=== PATIENT | male | born 1985 | race African-American/Black ===

== ENCOUNTER 2021-07-31 07:44 | Outpatient (REF) | payer BC, SELFPAY ==
[2021-07-31 08:52] LABS: Alanine Aminotransferase 37 U/L (0-40); Albumin Level 4.4 g/dL (3.5-5.0); Alkaline Phosphatase 78 U/L (39-117); Anion Gap 10 (12-20); Aspartate Amino Transferase 24 U/L (5-37); Bilirubin Total 0.4 mg/dL (0.0-1.0); Blood Urea Nitrogen 11 mg/dL (9-16); Calcium 9.7 mg/dL (8.4-10.2); Carbon Dioxide 28 mmol/L (22-29); Chloride 105 mmol/L (96-108); Cholesterol 178 mg/dL; Estimated Glomerular Filt Rate > 60; Glucose Fasting 122 mg/dL (60-99); HDL Cholesterol 37 mg/dL; LDL Cholesterol Calculated 124 mg/dl; Potassium 4.4 mmol/L (3.3-5.1); Sodium 139 mmol/L (135-145); Total Protein 7.6 g/dL (6.5-8.0); Triglycerides 86 mg/dL
[2021-07-31 08:58] LABS: Estimated Average Glucose 126 mg/dL
[2021-07-31 09:13] LABS: HBS Num1 109.55 mIU/mL (0-7.99); HBc Num1 0.07 S/CO (0.00-0.79); HIV AB/AG Nonreactive (Nonreactive); HIV Num 1 0.08 S/CO (0.00-0.99); Hepatitis B Core Antibody Nonreactive (Nonreactive); ~HepC Num1 0.16 S/CO (0.00-0.79); ~Hepatitis B Surface Antibody REACTIVE (Nonreactive); ~Hepatitis C Antibody Nonreactive (Nonreactive)
[2021-07-31 09:16] LABS: HBsAGNum1 0.22 S/CO (0.00-0.99); Hepatitis B Surface Antigen Negative (Negative)
[2021-07-31 09:17] LABS: TSH reflex Free T4 1.53 uIU/mL (0.32-4.0)
[2021-07-31 09:31] LABS: Syphilis Screen Reactive (Nonreactive)
[2021-08-06 16:11] LABS: Chlamydia Pneumoniae IgA <1:16 titer (<1:16); Chlamydia Pneumoniae IgM <1:10 titer (<1:10); Chlamydia Psittaci IgA <1:16 titer (<1:16); Chlamydia Psittaci IgG <1:64 titer (<1:64); Chlamydia Psittaci IgM <1:10 titer (<1:10); Chlamydia Trachomatis IgA <1:16 titer (<1:16); Chlamydia Trachomatis IgG <1:64 titer (<1:64); Chlamydia Trachomatis IgM <1:10 titer (<1:10); T.Pallidum Particle Agg Test Reactive (Nonreactive)
[2021-08-28 10:04] LABS: RPR Quantitative Non-Reactive (Nonreactive)
== END 2021-07-31 07:45 | disposition home or self-care (01) ==
LOC: HO.LAB 07:44
PROVIDERS: PCP Physician Assistant; Visit Provider Physician Assistant
DX: Z13.29 Encounter for screening for other suspected endocrine disorder (principal); Z13.220 Encounter for screening for lipoid disorders; Z11.3 Encounter for screening for infections with a predominantly sexual mode of transmission; Z11.4 Encounter for screening for human immunodeficiency virus [HIV]
CPT/HCPCS: 36415; 80053; 80061; 83036; 84443; 86592; 86631; 86632; 86704; 86706; 86780; 86803; 87340; 87389

== ENCOUNTER 2021-08-19 08:00 | Outpatient (RCR) | payer BC, SELFPAY ==
--- NOTE | 2021-07-03 10:10 | MHC.PT.EP ---
[facility] [place] Office [place] Office [place] Office [address] Pau Becerril [address] [phone] F: [phone] F: [phone] F: [phone] F: [phone] Physical Therapy Plan of Care Date of Evaluation: 07/03/21 Date of Surgery: Diagnosis: right hip pain. Assessment: The patient arrived reporting right hip pain. With further questioning about his pelvic floor he divulged he has some sexual dysfunction. He has poor strength in his deep pelvic floor muscles. He also admits he tends to clench during masturbation or during sexual activity including rectal penetration. He consented to an internal rectal exam where I found pain provocation with palpation of his right obturator internus as well as palpation in the 2nd layer at the perineal body. He admits he uses rectal sex toys regularly and some of these habits could be exacerbating his OI. I will educate him on relaxation strategies, behavior and lifestyle strategies to reduce pain and irritation. I will also do manual therapy to the OI to facilitate relaxation. I educated the patient on pelvic wand for him to do self manual work if he felt relief with our manual therapy. He is an excellent candidate for skilled Pelvic PT. Frequency and Duration: The patient will be seen 1x/week x 6 weeks. Short Term Goals: 1. Manage diaphragmatic breathing for tissue relaxation. 2. Improve sitting posture with use of lumbar roll for low back pain. 3. Review strategies to reduce muscle clenching, and behavior strategies to relieve tissue tension. Assisted Goals: 1. Pt to return to all ADL's without pain 2. Pt to have pain free sexual activity 3. Pt to return to PLOF without hip pain. Treatment Plan: Modalities to reduce pain, spasms and effusion. Manual therapy to restore motion and function. Therapeutic exercise to improve strength and flexibility. Neuromuscular re-education for posture and balance. Therapeutic activities to return to functional activities of daily living. Electronically signed by: Please sign and return to therapist. Thank you for your referral.
--- NOTE | 2021-09-04 14:22 | MHC.PT.DC ---
[facility] [place] Office [place] Office [place] Office [address] aPu Becerril [address] [phone] F: [phone] F: [phone] F: [phone] F: [phone] Physical Therapy Discharge Report Diagnosis: pain in right hip Date of Surgery: Date of Evaluation: 07/03/21 Date of Discharge: 08/19/21 Treatments to Date: 4 Cancellations to Date: No Shows to Date: Discharge Status: Achieved Goals Improved Function Independent with HEP Discharge Summary: The patient is extremely happy with his current progress. Pelvic wand seems sufficient for manual therapy. I gave further instruction on order of stretch vs strengthen. I educated him on proper stretches to relieve hip pain. He was advised to do only 25- 50% contraction of pelvic floor. He has met all of his goals. Electronically signed by: Haley Michaud PT DPT Please sign and return to therapist. Thank you for your referral.
== END 2021-09-04 14:23 | disposition home or self-care (01) ==
LOC: HO.PT 08:00
PROVIDERS: PCP Physician Assistant; Visit Provider Physician Assistant
DX: M25.551 Pain in right hip (principal)
CPT/HCPCS: 97110; 97112; 97140; 97162; 97530

== ENCOUNTER → 2021-09-11 16:04 | Outpatient (BNVA) | payer BC, SELFPAY | PROVIDERS: PCP Physician Assistant; Referring Provider Physician Assistant; Visit Provider Surgery | DX: A63.0 Anogenital (venereal) warts (principal) | CPT/HCPCS: 46600 ==

== ENCOUNTER 2024-11-22 08:40 | Outpatient (AMB) | payer BC, SELFPAY ==
[2024-11-22 08:52] VITALS: BP 140/84; PULSE 96; RESP 16; TEMP 36.2; O2SAT 95; BMI 35.4
--- NOTE | 2024-11-22 08:52 | A.OFFPC_ITS ---
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: No Accompanied by: Self / Same As Patient Allergies hydrochlorothiazide Adverse Reaction (Intermediate, Verified 11/22/24 09:24) sexual side effects Medication List - Last Reconciled 11/22/24 by Raji Ferro PA-C blood pressure test kit-large As directed doxycycline hyclate 200 mg PO ONCE PRN emtricitabine-tenofovir (TDF) 200-300 mg 1 tab PO DAILY multivitamin 1 tab PO DAILY Tobacco use date assessed: 11/22/24 Dental Screening Dental Screen Date: 11/22/24 Did you have a dental visit in the last 12 months?: Yes Did you have a dental problem in the last 6 months where you did not have access to dental care?: No Was dental information given to patient?: Patient has dentist HPI type 1 diabetic HPI Details Patient is a 39-year-old male here today for follow-up visit. Patient has a past medical history significant for obesity, HPV,? HTN, Impaired glucose metabolism, depression and anxiety. Concern--> recently has been evaluated by psychologist who confirms he does have symptoms consistent with ADHD (EVALUATION SCAN PATIENT'S DOCUMENTS). He reports having a lot of trouble in his personal life and professional life staying attention and focused on his job tasks. He is interested in getting a psychiatrist to talk to him about starting ADHD medication. PLAN: In the meantime he is willing to start Wellbutrin non stimulant ADHD medication to help him with his attention and focus. He also does suffer from depression anxiety which may interplay in his ADHD symptoms. -- also he reports having daytime somnolence and reports of apneic episodes at night. He is interested in being evaluated for obstructive sleep apnea. He does report his mother also does have obstructive sleep apnea. .. Impaired glucose metabolism:? A1c of 5.6 from 6.0. He denies any polyuria polydipsia he has been making dietary changes . .. Hypertension: Blood pressure elevated today in office. Was previously on blood pressure medication in the past hydrochlorothiazide though caused him sexual side effect. He is willing to restart a new blood pressure medication and start monitoring his blood pressure. . Class 2 Obesity: Has lost weight since last office visit? He does understand his BMI is over 30 and will work on being more physically active and adapting to better eating habits. . [facility] Medical History Perianal condylomata Surgical History No pertinent past surgical history Family History Mother Mental health disorder DMII (diabetes mellitus, type 2) Maternal Grandfather Colon cancer Father HTN (hypertension) CVA (cerebral vascular accident), Onset Age: 45 Social History Housing: Apartment Alcohol intake: current Alcohol intake frequency: a few times a month Alcohol type: beer Patient Tobacco Use Status: Never used Tobacco e-Cigarette/Vaping Use: Never Used Second Hand Smoke Exposure: No Substance Use Type: Marijuana service: No Current occupational status: employed Current occupation: [employer] Current occupational exposures/hazards: No Cognitive needs: No Hearing needs: No Vision needs: No Questionnaire PHQ-9 Over the last 2 weeks, how often have you been bothered by any of the following problems? 1. Little interest or pleasure in doing things: not at all 2. Feeling down, depressed, or hopeless: not at all 3. Trouble falling or staying asleep, or sleeping too much: nearly every day 4. Feeling tired or having little energy: nearly every day 5. Poor appetite or overeating: nearly every day 6. Feeling bad about yourself - or that you are a failure or have let yourself or your family down: not at all 7. Trouble concentrating on things, such as reading the newspaper or watching television: nearly every day 8. Moving or speaking so slowly that other people could have noticed. Or the opposite - being so fidgety or restless that you have been moving around a lot more than usual: several days 9. Thoughts that you would be better off or of hurting yourself in some way: not at all Total score: 13 Depression Screening Interpretation: Positive Depression Screening Follow-up: Existing condition and In treatment Depression Screening Done: Yes 46335 - PHQ-9 Billing: Yes Source: Developed by Drs. Abdullahi Veliz, Floresita Ayala, Simone Rogers and colleagues, with an educational darrel from [employer]. Thrive Questionnaire Date Thrive assessed: 11/22/24 I am a: Patient What is your living situation today?: I have a steady place to live Within the past 12 months, did the food you bought not last and you didn't have the money to get more?: Never true Within the past 12 months, did you worry whether your food would run out before you got money to buy more?: Never true Do you have trouble paying for medicines?: No Do you have trouble getting transportation to medical appointments?: No Do you have trouble paying your heating and electricity bill?: No Do you have trouble taking care of your child, family member or friend?: No Do you have trouble with day-to-day activities such as bathing, preparing meals, shopping, managing finances, etc.?: No Are you currently unemployed and looking for a job?: No Are you interested in more education?: No Please select the resources that you would like help with: None Currently or been in a relationship where the following occur: No concerns reported THRIVE Score: 0 AUDIT C Alcohol Use Questionnaire (AUDIT-C) 1. How often do you have a drink containing alcohol?: 2-4 times a month 2. How many drinks containing alcohol do you have on a typical day when you are drinking?: 3 or 4 3. How often do you have six or more drinks on one occasion?: Never Total Score: 3 Score Reviewed/Action Taken: No HERB-7 AMB Questionnaire HERB-7 Date HERB - 7 assessed: 11/22/24 Feeling nervous, anxious, or on edge: 2 = More than half the days Not being able to stop or control worryin = More than half the days Worrying too much about different things: 3 = Nearly every day Trouble relaxin = Nearly every day Being so restless that it is hard to sit still: 1 = Several days Becoming easily annoyed or irritable: 1 = Several days Feeling afraid as if something awful might happen: 0 = Not at all Total HERB-7 score (0-4 normal; 5-9 mild; 10-14 moderate; 15-21 severe): 12 Source: Developed by Drs. Abdullahi Veliz, Floresita Ayala, Simone Rogers and colleagues, with an educational darrel from [employer]. HERB-7 Assessment Billing HERB-7 Assessment Tool: HERB-7 Assessment 04860 Physical exam (Primary Care) Vital Signs: Last Vital Signs Temp 97.1 F 11/22/24 08:52 Pulse 96 11/22/24 08:52 Resp 16 11/22/24 08:52 BP 140/84 H 11/22/24 08:52 Pulse Ox 95 11/22/24 08:52 Oxygen Delivery Method Room Air 11/22/24 08:52 BMI result Body Mass Index 35.4 BMI Assessment/Plan discussion: High BMI High, discussed plan: lifestyle, weight reduction, dietary and physical activity Tobacco/Smoking Status: Tobacco use Status Tobacco use date assessed 11/22/24 11/22/24 09:02 Patient Tobacco Use Status Never used Tobacco 11/22/24 09:02 Tobacco use type 02/05/22 09:09 e-Cigarette/Vaping Use Never Used 11/22/24 09:02 PHQ-9: PHQ-9 Score PHQ-9: Total score 13 11/22/24 09:04 Depression Screening Interpretation: Positive Depression Screening Follow-up: Existing condition and In treatment Thrive Assessment: Date of Thrive Assessment Date Thrive assessed 11/22/24 11/22/24 09:02 Currently or been in a relationship where the following occur: No concerns reported Results AMB Hemoglobin A1c AMB Hemoglobin A1c 5.6 % Last Edit by Clementina Armijo CMA on 11/22/24 09:05 Results Reviewed Results Reviewed: Laboratory Last Values Hgb A1c (Clinic) 5.6 % (4.0-6.0) 11/22/24 08:51 Coding Level of Care Code Est Pt Level 4 (08322) Diagnoses Attention deficit hyperactivity disorder (ADHD), predominantly inattentive type F90.0 Attention deficit-hyperactivity disorder type: predominantly inattentive Primary hypertension I10 Hypertension type: primary hypertension MDD (major depressive disorder), recurrent episode, moderate F33.1 Impaired glucose metabolism R73.09 Class 2 obesity E66.812 GILBERTO (obstructive sleep apnea) G47.33 HERB (generalized anxiety disorder) F41.1 Additional Codes HERB-7 Assessment Billing - HERB-7 Assessment Tool: HERB-7 Assessment 66151 ([id number]) PHQ-9 - 23603 - PHQ-9 Billing: Yes ([id number]) Assessment & Plan Assessment & Plan (1) ADHD (attention deficit hyperactivity disorder): Code(s): F90.9 - Attention-deficit hyperactivity disorder, unspecified type Category: Medical Qualifiers: Attention deficit-hyperactivity disorder type: predominantly inattentive Qualified Code(s): F90.0 - Attention-deficit hyperactivity disorder, predominantly inattentive type Plan: Patient had had an evaluation with a psychologist whom recommends further treatment with pharmacotherapy. Will try Wellbutrin 100 mg SR to help him with his attention focus and also has depression and anxiety. Will refer to outpatient psychiatry for other recommendations on medication therapy for his ADHD. (2) HTN (hypertension): Code(s): I10 - Essential (primary) hypertension Category: Medical Qualifiers: Hypertension type: primary hypertension Qualified Code(s): I10 - Essential (primary) hypertension Plan: Patient's blood pressure elevated today in office. Was previously on hydrocodone hydrochlorothiazide though stopped this medication due to sexual side effects. He is willing to restart low-dose blood pressure medication thus will start lisinopril 5 mg with goal blood pressure to be below 140/90 (3) MDD (major depressive disorder), recurrent episode, moderate: Code(s): F33.1 - Major depressive disorder, recurrent, moderate Category: Medical Plan: Patient's PHQ-9 score positive for depression which has been existing condition for him. He does speak with a mental health therapist weekly though was interested in seeing a psychiatrist has a above. (4) Impaired glucose metabolism: Code(s): R73.09 - Other abnormal glucose Category: Medical Plan: Patient has a history of impaired glucose metabolism. Today's A1c of 5.6. He has been making dietary changes as of late as he has been told his blood sugars were high at a previous urgent care visit. (5) Class 2 obesity: Code(s): E66.812 - Obesity, class 2 Category: Medical Plan: Patient does understand his BMI is over 35 and will work on being more physi eliel active and adapting to better eating habits to reduce his weight. (6) GILBERTO (obstructive sleep apnea): Code(s): G47.33 - Obstructive sleep apnea (adult) (pediatric) Category: Medical Plan: Patient is concerned about obstructive sleep apnea, does have signs and symptoms consistent with a at an obstructive sleep apnea. He does report having a family history of obstructive sleep apnea. (7) HERB (generalized anxiety disorder): Code(s): F41.1 - Generalized anxiety disorder Category: Medical Plan: Patient's HERB-7 score positive for anxiety which has been existing condition for him. Currently speaking with a mental health therapist in his willing to start Wellbutrin to help him with both his anxiety depression and ADHD symptoms. Orders: Orders RT home sleep study Today G47.33 - Obstructive sleep apnea (adult) (pediatric) Microalbumin, Random (w Creat) Today I10 - Essential (primary) hypertension Comprehensive [place]. Panel Fast Today I10 - Essential (primary) hypertension Complete Blood Count no Diff Today I10 - Essential (primary) hypertension AMB Hemoglobin A1c Today R73.09 - Other abnormal glucose Referrals Psychiatry Outpatient Consultation Service F90.0 - Attention-deficit hyperactivity disorder, predominantly inattentive type Medications: New bupropion HCl SR (Wellbutrin SR) 100 mg PO DAILY 30 days 30 tabs 0RF F90.0 - Attention-deficit hyperactivity disorder, predominantly inattentive type lisinopril 5 mg PO DAILY 90 days 90 tabs 1RF I10 - Essential (primary) hypertension Patient Instructions: Goal: Blood pressure to be below 140/90 Barriers: Adherence to physical activity and healthy eating habits
--- OUTSIDE RECORDS SUMMARY | 2024-11-22 09:01 | XMS_ITS | Clinical Summary ---
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 Social History Tobacco Use Types Packs/Day Years Used Date Smoking Tobacco: Never Alcohol Use Standard Drinks/Week Comments Yes 0 (1 standard drink = 0.6 oz pur e alcohol) Sex and Gender Information Value Date Recorded Sex Assigned at Not on file Gender Identity Not on file Sexual Orientation Not on file Last Filed Vital Signs Vital Sign Reading Time Taken Comments Blood Pressure 154/92 01/21/2017 2:08 PM EDT Pulse 114 01/21/2017 2:08 PM EDT Temperature - - Respiratory Rate - - Oxygen Saturation - - Inhaled Oxygen Concentration - - Weight 123.8 kg (273 lb) 01/21/2017 2:08 PM EDT Height 182.9 cm (6') 01/21/2017 2:08 PM EDT Body Mass Index 37.03 01/21/2017 2:08 PM EDT Plan of Treatment Health Maintenance Due Date Last Done Comments Hepatitis B Vaccines (1 of 3 - 3-dose series) 1987 Hepatitis C Screening 1987 COVID-19 Vaccine (#1) 1987 Depression Screening 1999 Preventative Health Evaluation 2005 DTap / Tdap / Td (1 - Tdap) 2006 Influenza Vaccine (Season Ended) 2025 Pneumococcal Vaccine Aged Out No long er eligible based on patient's age to complete this topic RSV Ped < 20 months Aged Out No longe r eligible based on patient's age to complete this topic Care Teams Day Care Center Director Relationship Specialty Start Date End Date Maryjo Dixon MD [address] [place] [address] PCP - General Early Breastfeeding Care Specialist 12/17/16
== END 2024-11-22 09:56 | disposition home or self-care (01) ==
LOC: HO.HMCH 08:41
PROVIDERS: PCP Physician Assistant; Visit Provider Physician Assistant
DX: I10 Essential (primary) hypertension (principal); F33.1 Major depressive disorder, recurrent, moderate; E66.812 Obesity, class 2; Z68.35 Body mass index [BMI] 35.0-35.9, adult; F90.0 Attention-deficit hyperactivity disorder, predominantly inattentive type; R73.09 Other abnormal glucose; G47.33 Obstructive sleep apnea (adult) (pediatric); F41.1 Generalized anxiety disorder

== ENCOUNTER → 2024-11-22 08:40 | Outpatient (BNVA) | payer BC, SELFPAY | PROVIDERS: PCP Physician Assistant; Visit Provider Physician Assistant | DX: I10 Essential (primary) hypertension (principal); F90.0 Attention-deficit hyperactivity disorder, predominantly inattentive type; F33.1 Major depressive disorder, recurrent, moderate; R73.09 Other abnormal glucose; E66.812 Obesity, class 2; Z68.35 Body mass index [BMI] 35.0-35.9, adult; G47.33 Obstructive sleep apnea (adult) (pediatric); F41.1 Generalized anxiety disorder; Z13.31 Encounter for screening for depression; Z13.30 Encounter for screening examination for mental health and behavioral disorders, unspecified | CPT/HCPCS: 83036; 96127 ==

== ENCOUNTER 2024-12-22 10:31 | Outpatient (AMB) | payer BC, SELFPAY ==
--- NOTE | 2024-12-22 10:26 | MHC.PC.OV ---
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: No Information Interpreted: non-clinical & clinical Manager Sales: Not Required per policy Accompanied by: Self / Same As Patient Allergies hydrochlorothiazide Adverse Reaction (Intermediate, Verified 12/22/24 10:48) sexual side effects Medication List - Last Reconciled 12/22/24 by Raji Ferro PA-C blood pressure test kit-large As directed bupropion HCl SR (Wellbutrin SR) 100 mg PO DAILY 30 days emtricitabine-tenofovir (TDF) 200-300 mg 1 tab PO DAILY lisinopril 5 mg PO DAILY 90 days multivitamin 1 tab PO DAILY Tobacco use date assessed: 11/22/24 Dental Screening Dental Screen Date: 11/22/24 HPI f/u ADHD ( telehealth) HPI Details Patient is a 39-year-old male being evaluated today via telephone only. At last visit we discussed his ADD symptoms to which we had started on stimulant ADHD medication Wellbutrin. He felt the 1st 2 weeks of using this medication his anxiety and depression was reduced though his attention and focus on detail tasks were still a problem. PLAN: Will increase his Wellbutrin to 150s stained release to see if we can get better capture of his attention and focus. He is reporting he is staying committed to staying away from stimulant ADHD medication [facility] Medical History Perianal condylomata Surgical History No pertinent past surgical history Family History Mother Mental health disorder DMII (diabetes mellitus, type 2) Maternal Grandfather Colon cancer Father HTN (hypertension) CVA (cerebral vascular accident), Onset Age: 45 Social History Housing: Apartment Alcohol intake: current Alcohol intake frequency: a few times a month Alcohol type: beer Patient Tobacco Use Status: Never used Tobacco e-Cigarette/Vaping Use: Never Used Second Hand Smoke Exposure: No Substance Use Type: Marijuana service: No Current occupational status: employed Current occupation: [employer] Current occupational exposures/hazards: No Cognitive needs: No Hearing needs: No Vision needs: No Questionnaire Thrive Questionnaire Date Thrive assessed: 11/22/24 I am a: Patient What is your living situation today?: I have a steady place to live Within the past 12 months, did the food you bought not last and you didn't have the money to get more?: Never true Within the past 12 months, did you worry whether your food would run out before you got money to buy more?: Never true Do you have trouble paying for medicines?: No Do you have trouble getting transportation to medical appointments?: No Do you have trouble paying your heating and electricity bill?: No Do you have trouble taking care of your child, family member or friend?: No Do you have trouble with day-to-day activities such as bathing, preparing meals, shopping, managing finances, etc.?: No Are you currently unemployed and looking for a job?: No Are you interested in more education?: No Please select the resources that you would like help with: None Currently or been in a relationship where the following occur: No concerns reported THRIVE Score: 0 HERB-7 AMB Questionnaire HERB-7 Date HERB - 7 assessed: 11/22/24 Source: Developed by Drs. Abdullahi Veliz, Floresita Ayala, Simone Rogers and colleagues, with an educational darrel from [employer]. Review of Systems Const Denies headache(s) Eyes Denies loss of vision ENT Denies vertigo, Denies dizziness, Denies headache(s) and Denies sore throat Card Denies chest pain, Denies leg edema and Denies lightheadedness Resp Denies cough, Denies hemoptysis and Denies wheezing GI Denies abdominal pain, Denies melena, Denies constipation, Denies diarrhea and Denies vomiting Denies dysuria, Denies urinary frequency and Denies urinary urgency Musc Denies arthralgias, Denies joint swelling, Denies numbness and Denies tingling Neuro Denies behavioral changes, Denies vertigo, Denies dizziness, Denies headache(s), Denies loss of vision, Denies memory loss, Denies numbness and Denies tingling Psych Denies anxiety, Denies behavioral changes, Denies depression, Denies memory loss and Denies panic attacks Javy/Lymph Denies easy bleeding and Denies easy bruising Aller/Immun Denies wheezing Physical exam (Primary Care) Tobacco/Smoking Status: Tobacco use Status Tobacco use date assessed 11/22/24 12/22/24 10:27 Patient Tobacco Use Status Never used Tobacco 12/22/24 10:27 Tobacco use type 02/05/22 09:09 e-Cigarette/Vaping Use Never Used 12/22/24 10:27 Thrive Assessment: Date of Thrive Assessment Date Thrive assessed 11/22/24 12/22/24 10:27 Currently or been in a relationship where the following occur: No concerns reported Telehealth Telehealth Telehealth Platform: Telephone Location of provider rendering services: practice address Location of patient: address on file Patient Identification confirmed using: Name, : Yes Telehealth method: voice only Patient verbally consented to treatment: Yes Patient verbally consented to billing insurance company: Yes Patient informed of any privacy concerns related to visit: Yes Minutes spent on Phone/Video with Pt.: 11 Coding Level of Care Code Tele Est Pt Level 3 (58974) Diagnoses Attention deficit hyperactivity disorder (ADHD), predominantly inattentive type F90.0 Attention deficit-hyperactivity disorder type: predominantly inattentive Assessment & Plan Assessment & Plan (1) ADHD (attention deficit hyperactivity disorder): Code(s): F90.9 - Attention-deficit hyperactivity disorder, unspecified type Category: Medical Qualifiers: Attention deficit-hyperactivity disorder type: predominantly inattentive Qualified Code(s): F90.0 - Attention-deficit hyperactivity disorder, predominantly inattentive type Plan: Patient had had an evaluation with a psychologist whom recommends further treatment with pharmacotherapy. We has been on Wellbutrin 100 mg sustained release which has helped in particular ways with some anxiety and depression though not on his ADD symptoms. He is willing to increase dose to 150mg and follow-up in 6-8 weeks to evaluate its effectiveness. Medications: New bupropion HCl SR (Wellbutrin SR) 150 mg PO DAILY 30 tabs 1RF 30 days F90.0 - Attention-deficit hyperactivity disorder, predominantly inattentive type Refilled lisinopril 5 mg PO DAILY 90 tabs 1RF 90 days I10 - Essential (primary) hypertension Discontinued bupropion HCl SR (Wellbutrin SR) Discontinued Reason: Doctor's Order 100 mg PO DAILY 30 days 30 tabs 3RF F90.0 - Attention-deficit hyperactivity disorder, predominantly inattentive type
--- OUTSIDE RECORDS SUMMARY | 2024-12-22 11:11 | XMS_ITS | Clinical Summary ---
Author Organization [facility] Address [address] [place] [address] Care Team Providers Care Instructional Design Consultant Name Role Phone Maryjo Dixon MD Primary Care Provider [phone] Allergies No known active allergies Medications cetirizine (ZyrTEC) 10 MG tablet Take 10 mg by mouth daily. Active acetaminophen (TYLENOL) 325 MG tablet Take 650 mg by mouth 4 times daily (every 6 hours) as needed for mild pain. Active mometasone (ELOCON) 0.1 % creamIndication s:Other atopic dermatitis and related conditions Apply topically daily. Apply thin film to affected area. 50 g 3 7 Active budesonide (RINOCORT AQUA) 32 MCG/ACT nasal sprayIndication s:Allergic rhinitis due to dust 2 sprays into each nostril daily. Use in each nostril as directed 1 Bottle 3 7 Active Social History Tobacco Use Types Packs/Day Years Used Date Smoking Tobacco: Never Sex and Gender Information Value Date Recorded Sex Assigned at Not on file Legal Sex Male 1:47 PM EDT Gender Identity Not on file Sexual Orientation Not on file Last Filed Vital Signs Vital Sign Reading Time Taken Comments Blood Pressure 129/76 12/31/2016 11:56 AM EDT Pulse - - Temperature - - Respiratory Rate - - Oxygen Saturation - - Inhaled Oxygen Concentration - - Weight 122 kg (270 lb) 12/31/2016 11:56 AM EDT Height 182.9 cm (6') 12/31/2016 11:56 AM EDT Body Mass Index 36.62 12/31/2016 11:56 AM EDT Plan of Treatment Health Maintenance Due Date Last Done Comments Hepatitis C Virus Screening 1987 HIV Screening 01/28/2000 DTaP/Tdap/Td Vaccines (1 - Tdap) 2006 Hepatitis B Vaccines (1 of 3 - 19+ 3-dose series) 2006 COVID-19 Vaccine (1 - 2023-2 5 season) 2024 Influenza Vaccine 01/13/2025 HPV Vaccines Aged Out No longer eligi ble based on patient's age to complete this topic Pneumococcal Vaccine: Pediat jeremy (0-5 Years) and At-Risk Patients (6 to 49 Years) Aged Out No longer eligible b ased on patient's age to complete this topic Insurance [facility] HMO/POS [facility] Care Teams Instructional Design Consultant Relationship Specialty Start Date End Date Maryjo Dixon MD [address] [place] [id number] PCP - General Internal Medicine 12/30/16
--- OUTSIDE RECORDS SUMMARY | 2024-12-22 11:11 | XMS_ITS | Clinical Summary ---
Author Organization [facility] Address [address] [place] [id number] Care Team Providers Care Sprayer Insecticide Name Role Phone Maryjo Dixon MD Primary Care Provider [phone] Allergies Active Allergy Reactions Criticality Noted Date [...] Td (1 - Tdap) 2006 Influenza Vaccine (#1) 2025 Pneumococcal Vaccine Aged Out No long er eligible based on patient's age to complete this topic RSV Ped < 20 months Aged Out No longe r eligible based on patient's age to complete this topic Care Teams Sprayer Insecticide Relationship Specialty Start Date End Date Maryjo Dixon MD [address] [place] [address] PCP - General Hand Welt Butter 12/17/16
--- OUTSIDE RECORDS SUMMARY | 2024-12-22 11:11 | XMS_ITS | Clinical Summary ---
Author Organization [facility] Address [address] [place] [address] Care Team Providers Care Glazing Superintendent Name Role Phone Unavailable Primary Care Provider Unavailabl e Source Comments PLEASE NOTE, if this patient is a minor, it may be UNLAWFUL to discuss sensitive information that is contained in these records (such as FAMILY PLANNING, MENTAL HEALTH or SUBSTANCE ABUSE) with the minor patient's parent or other person without the patient's specific authorization.[facility] Allergies No known active allergies Medications No known medications Social History Tobacco Use Types Packs/Day Years Used Date Smoking Tobacco: Never Smokeless Tobacco: Never Alcohol Use Standard Drinks/Week Comments Not Asked 0 (1 standard drink = 0.6 oz pur e alcohol) Sex and Gender Information Value Date Recorded Sex Assigned at Not on file Legal Sex Male 9:26 AM PST Gender Identity Not on file Sexual Orientation Not on file Last Filed Vital Signs Vital Sign Reading Time Taken Comments Blood Pressure 140/85 08/15/2015 12:48 PM EST Pulse 108 08/15/2015 12:48 PM EST Temperature 36.2 C (97.1 F) 08/15/2015 12:48 PM EST Respiratory Rate 20 08/15/2015 12:48 PM EST Oxygen Saturation - - Inhaled Oxygen Concentration - - Weight 132.9 kg (293 lb) 08/15/2015 12:48 PM EST Height 180 cm (5' 10.87 ) 08/15/2015 12:48 PM ES T Body Mass Index 41.02 08/15/2015 12:48 PM EST Plan of Treatment Not on file Insurance [employer] Member Subscriber Plan / Payer (Ef fective 2014-Present) Name:Walt Slade Walker Relation to Subscriber:Self Name:Walt Slade Payer ID:[id number] Type:Indemnity Address: [address] [address] [place] [address]
== END 2024-12-22 11:49 | disposition home or self-care (01) ==
LOC: HO.HMCH 10:31
PROVIDERS: PCP Physician Assistant; Visit Provider Physician Assistant
DX: F90.0 Attention-deficit hyperactivity disorder, predominantly inattentive type (principal)

== ENCOUNTER → 2024-12-22 10:31 | Outpatient (BNVA) | payer BC, SELFPAY | PROVIDERS: PCP Physician Assistant; Visit Provider Physician Assistant | DX: I10 Essential (primary) hypertension (principal); F90.0 Attention-deficit hyperactivity disorder, predominantly inattentive type; F41.9 Anxiety disorder, unspecified; F32.A Depression, unspecified; Z79.899 Other long term (current) drug therapy | CPT/HCPCS: 98967 ==

== ENCOUNTER 2025-02-09 12:44 | Outpatient (AMB) | payer BC, SELFPAY ==
--- NOTE | 2025-02-09 12:44 | MHC.PC.OV ---
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 Required: No Accompanied by: Self / Same As Patient Allergies hydrochlorothiazide Adverse Reaction (Intermediate, Verified 02/09/25 13:05) sexual side effects Medication List - Last Reconciled 02/09/25 by Raji Ferro PA-C blood pressure test kit-large As directed bupropion HCl SR (Wellbutrin SR) 150 mg PO DAILY 30 days lisinopril 5 mg PO DAILY 90 days multivitamin 1 tab PO DAILY Tobacco use date assessed: 11/22/24 Dental Screening Dental Screen Date: 02/09/25 Did you have a dental visit in the last 12 months?: Yes Did you have a dental problem in the last 6 months where you did not have access to dental care?: No Was dental information given to patient?: Patient has dentist HPI 8 week f/u HPI Details Patient is a 40-year-old male being evaluated today via telephone only. At last visit we discussed his ADD symptoms to which we had started on stimulant ADHD medication Wellbutrin. He has felt it has been easier to start projects though still feels a bit inattentive on his tasks. He does report a feeling of dread in the mornings though relates this to his stressful work environment. PLAN: Will increase his Wellbutrin to 150mg twice a day to see if we can get better coverage of his ADD symptoms . He is reporting he is staying committed to staying away from stimulant ADHD medication [facility] Medical History Perianal condylomata Surgical History No pertinent past surgical history Family History Mother Mental health disorder DMII (diabetes mellitus, type 2) Maternal Grandfather Colon cancer Father HTN (hypertension) CVA (cerebral vascular accident), Onset Age: 45 Social History Housing: Apartment Alcohol intake: current Alcohol intake frequency: a few times a month Alcohol type: beer Patient Tobacco Use Status: Never used Tobacco e-Cigarette/Vaping Use: Never Used Second Hand Smoke Exposure: No Substance Use Type: Marijuana service: No Current occupational status: employed Current occupation: [employer] Current occupational exposures/hazards: No Cognitive needs: No Hearing needs: No Vision needs: No Questionnaire PHQ-9 Over the last 2 weeks, how often have you been bothered by any of the following problems? 1. Little interest or pleasure in doing things: not at all 2. Feeling down, depressed, or hopeless: not at all 3. Trouble falling or staying asleep, or sleeping too much: nearly every day 4. Feeling tired or having little energy: nearly every day 5. Poor appetite or overeating: nearly every day 6. Feeling bad about yourself - or that you are a failure or have let yourself or your family down: not at all 7. Trouble concentrating on things, such as reading the newspaper or watching television: nearly every day 8. Moving or speaking so slowly that other people could have noticed. Or the opposite - being so fidgety or restless that you have been moving around a lot more than usual: several days 9. Thoughts that you would be better off or of hurting yourself in some way: not at all Total score: 13 Depression Screening Interpretation: Positive Depression Screening Follow-up: Existing condition and In treatment Depression Screening Done: Yes Source: Developed by Drs. Abdullahi Veliz, Floresita Ayala, Simone Rogers and colleagues, with an educational darrel from [employer]. Thrive Questionnaire Date Thrive assessed: 11/22/24 I am a: Patient What is your living situation today?: I have a steady place to live Within the past 12 months, did the food you bought not last and you didn't have the money to get more?: Never true Within the past 12 months, did you worry whether your food would run out before you got money to buy more?: Never true Do you have trouble paying for medicines?: No Do you have trouble getting transportation to medical appointments?: No Do you have trouble paying your heating and electricity bill?: No Do you have trouble taking care of your child, family member or friend?: No Do you have trouble with day-to-day activities such as bathing, preparing meals, shopping, managing finances, etc.?: No Are you currently unemployed and looking for a job?: No Are you interested in more education?: No Please select the resources that you would like help with: None Currently or been in a relationship where the following occur: No concerns reported THRIVE Score: 0 AUDIT C Alcohol Use Questionnaire (AUDIT-C) 1. How often do you have a drink containing alcohol?: 2-4 times a month 2. How many drinks containing alcohol do you have on a typical day when you are drinking?: 3 or 4 3. How often do you have six or more drinks on one occasion?: Never Total Score: 3 Score Reviewed/Action Taken: No HERB-7 AMB Questionnaire HERB-7 Date HERB - 7 assessed: 11/22/24 Feeling nervous, anxious, or on edge: 1 = Several days Not being able to stop or control worryin = Several days Worrying too much about different things: 2 = More than half the days Trouble relaxin = Nearly every day Being so restless that it is hard to sit still: 1 = Several days Becoming easily annoyed or irritable: 0 = Not at all Feeling afraid as if something awful might happen: 0 = Not at all Total HERB-7 score (0-4 normal; 5-9 mild; 10-14 moderate; 15-21 severe): 8 Source: Developed by Drs. Abdullahi Veliz, Floresita Ayala, Simone Rogers and colleagues, with an educational darrel from [employer]. HERB-7 Assessment Billing HERB-7 Assessment Tool: HERB-7 Assessment 55775 Review of Systems Const Denies headache(s) Eyes Denies loss of vision ENT Denies vertigo, Denies dizziness, Denies headache(s) and Denies sore throat Card Denies chest pain, Denies leg edema and Denies lightheadedness Resp Denies cough, Denies hemoptysis and Denies wheezing GI Denies abdominal pain, Denies melena, Denies constipation, Denies diarrhea and Denies vomiting Denies dysuria, Denies urinary frequency and Denies urinary urgency Musc Denies arthralgias, Denies joint swelling, Denies numbness and Denies tingling Neuro Denies behavioral changes, Denies vertigo, Denies dizziness, Denies headache(s), Denies loss of vision, Denies memory loss, Denies numbness and Denies tingling Psych Denies anxiety, Denies behavioral changes, Denies depression, Denies memory loss and Denies panic attacks Javy/Lymph Denies easy bleeding and Denies easy bruising Aller/Immun Denies wheezing Physical exam (Primary Care) Tobacco/Smoking Status: Tobacco use Status Tobacco use date assessed 11/22/24 02/09/25 12:50 Patient Tobacco Use Status Never used Tobacco 02/09/25 12:50 Tobacco use type 12/23/24 12:04 e-Cigarette/Vaping Use Never Used 02/09/25 12:50 PHQ-9: PHQ-9 Score PHQ-9: Total score 13 02/09/25 12:50 Depression Screening Interpretation: Positive Depression Screening Follow-up: Existing condition and In treatment Thrive Assessment: Date of Thrive Assessment Date Thrive assessed 11/22/24 02/09/25 12:50 Currently or been in a relationship where the following occur: No concerns reported Telehealth Telehealth Telehealth Platform: Telephone Location of provider rendering services: practice address Location of patient: address on file Patient Identification confirmed using: Name, : Yes Telehealth method: voice only Patient verbally consented to treatment: Yes Patient verbally consented to billing insurance company: Yes Patient informed of any privacy concerns related to visit: Yes Minutes spent on Phone/Video with Pt.: 11 Coding Level of Care Code Tele Est Pt Level 3 (09698) Diagnoses Attention deficit hyperactivity disorder (ADHD), predominantly inattentive type F90.0 Attention deficit-hyperactivity disorder type: predominantly inattentive Additional Codes HERB-7 Assessment Billing - HERB-7 Assessment Tool: HERB-7 Assessment 18824 ([id number]) Assessment & Plan Assessment & Plan (1) ADHD (attention deficit hyperactivity disorder): Code(s): F90.9 - Attention-deficit hyperactivity disorder, unspecified type Category: Medical Qualifiers: Attention deficit-hyperactivity disorder type: predominantly inattentive Qualified Code(s): F90.0 - Attention-deficit hyperactivity disorder, predominantly inattentive type Plan: Patient had had an evaluation with a psychologist whom recommends further treatment with pharmacotherapy. We have started Wellbutrin 150 in his noticeable effect on starting his tasks though still feels a bit inattentive on task as he jumps from task to task. He is interested in increasing his Wellbutrin to 150 b.i.d. to get coverage throughout the day. Will follow up in 8 weeks to evaluate the effectiveness of the medication dose increased. Medications: Changed From bupropion HCl SR (Wellbutrin SR) 150 mg PO DAILY 30 days 30 tabs 1RF F90.0 - Attention-deficit hyperactivity disorder, predominantly inattentive type To bupropion HCl SR (Wellbutrin SR) 150 mg PO BID 60 tabs 3RF 30 days F90.0 - Attention-deficit hyperactivity disorder, predominantly inattentive type
--- OUTSIDE RECORDS SUMMARY | 2025-02-09 13:20 | XMS_ITS | Clinical Summary ---
Author Organization [facility] Address [address] [place] [address] Care Team Providers Care Human Services Assistant Name Role Phone Maryjo Dixon MD Primary Care Provider [phone] Allergies No known active allergies Medications cetirizine [...] of 3 - 19+ 3-dose series) 2006 HPV Vaccines (1 - 3-dose SCD M series) 2014 COVID-19 Vaccine (1 - 2023-2 5 season) 2024 Influenza Vaccine 01/13/2025 Pneumococcal Vaccine: Pediat jeremy (0-5 Years) and At-Risk Patients (6 to 49 Years) Aged Out No longer eligible b ased on patient's age to complete this topic Insurance [facility] H[facility]/POS [facility] Care Teams Human Services Assistant Relationship Specialty Start Date End Date Maryjo Dixon MD [address] [place] [id number] PCP - General Internal Medicine 12/30/16
--- OUTSIDE RECORDS SUMMARY | 2025-02-09 13:20 | XMS_ITS | Clinical Summary ---
Author Organization [facility] Address [address] [place] [address] Care Team Providers Care Printed Circuit Board Panels Trimmer Name Role Phone Unavailable Primary Care Provider [...] Slade Payer ID:[id number] Type:Indemnity Address: [address] [address] [place] [address]
--- OUTSIDE RECORDS SUMMARY | 2025-02-09 13:20 | XMS_ITS | Clinical Summary ---
Author Organization [facility] [place] [address] Care Team Providers Care Marketing Production Specialist Name Role Phone Unavailable Primary Care Provider Unavailabl e Social History Tobacco Use Types Packs/Day Years Used Date Smoking Tobacco: Never Assessed Sex and Gender Information Value Date Recorded Sex Assigned at Not on file Legal Sex Male 8:22 PM EDT Gender Identity Not on file Sexual Orientation Not on file Plan of Treatment Health Maintenance Due Date Last Done Comments HIV screen 2005 Hepatitis C Screening 2005 Lipid Screening 2005 Hepatitis B vaccine (0-59 yrs) and Risk (1) 2006 Tetanus/Diphtheria/Pertussis Vaccines (1 - Tdap) 01/27 Covid-19 Vaccine ( - 2023- season) 2024 Influenza (Flu) vaccine (1 o f 1 - Influenza standard series) 02/13/[address] [facility]
--- OUTSIDE RECORDS SUMMARY | 2025-02-09 13:20 | XMS_ITS | Clinical Summary ---
Author Organization [facility] Address [address] [place] [id number] Care Team Providers Care Business Analysis Consultant Name Role Phone Maryjo Dixon MD Primary Care Provider [phone] Allergies Active Allergy Reactions Criticality Noted Date [...] age to complete this topic Care Teams Business Analysis Consultant Relationship Specialty Start Date End Date Maryjo Dixon MD [address] [place] [address] PCP - General Casting And Pasting Supervisor 12/17/16
== END 2025-02-09 13:32 | disposition home or self-care (01) ==
LOC: HO.HMCH 12:44
PROVIDERS: PCP Physician Assistant; Visit Provider Physician Assistant
DX: F90.0 Attention-deficit hyperactivity disorder, predominantly inattentive type (principal)

== ENCOUNTER → 2025-02-09 12:44 | Outpatient (BNVA) | payer BC, SELFPAY | PROVIDERS: PCP Physician Assistant; Visit Provider Physician Assistant | DX: F90.0 Attention-deficit hyperactivity disorder, predominantly inattentive type (principal) | CPT/HCPCS: 96127; 98967 ==